=== PATIENT | female | born 1960 | race Caucasian/White ===

== ENCOUNTER 2018-09-30 17:36 | Emergency (ER) | payer OTHER ==
--- NOTE | 2018-09-30 17:39 | PDOC ---
"History of Present Illness - History of Present Illness Initial Comments: Of note, history is somewhat limited, patient seemingly not the most reliable source. This patient is a 58 year old female with PMHx of COPD, hyperthyroidism , and discoid lupus, who presents ambulatory to ER with complaints of thigh, neck, and generalized body pain which began 1 hr ago, denies inciting event. Patient also endorses nausea, RUQ pain, and 1 episode of vomit. Patient states that this began a week ago after being given red meat at a homeless detention when she is not used to eating red meat. Patient states that she has been noncompliant with her medication for the past year. Patient states that she is originally from [facility] and came to [facility] because of her boyfriend. She states he dropped her off and the train station from [place] and she somehow ended up here. She states that she is staying at a [facility] in [facility]. Denies any diarrhea. Denies any recent trauma, fall or heavy lifting. Social Hx: cigarette use. Denies EtOH and drug use. Last drink over a year ago. Surgical Hx: Appendectomy, tubal ligation Allergies: codeine (anaphylactic), penicillin (anaphylactic). 09/30/18 18:30 <Maryse Chavarria - Last Filed: 09/30/18 18:30> - General History Source: Patient Exam Limitations: No Limitations <Karyn Jacques - Last Filed: 10/03/18 11:47> - General Chief Complaint: Nausea/Vomiting Stated Complaint: NAUSEA Time Seen by Provider: 09/30/18 17:39 Past History <Maryse Chavarria - Last Filed: 09/30/18 18:30> <Karyn Jacques - Last Filed: 10/03/18 11:47> - Past Medical History Allergies/Adverse Reactions: Allergies Allergy/AdvReac Type Severity Reaction Status Date / Time No Known Allergies Allergy Verified 09/30/18 17:42 Home Medications: Ambulatory Orders NK [No Known Home Medication] 09/30/18 Review of Systems - Review of Systems Comments:: GENERAL/CONSTITUTIONAL: +generalized pain No: fever, chills, weakness, loss of appetite. HEAD, EYES, EARS, NOSE AND THROAT: No: change in vision, ear pain, discharge, sore throat, throat swelling. CARDIOVASCULAR: No: chest pain, lightheadedness, palpitations, syncope RESPIRATORY: No: cough, shortness of breath, wheezing, hemoptysis, stridor. GASTROINTESTINAL: +nausea, vomit x1, RUQ pain. No: diarrhea, rectal bleeding, constipation. GENITOURINARY: No: dysuria, hematuria, frequency, urgency, flank pain. MUSCULOSKELETAL: +neck pain. No: back pain, joint pain, muscle swelling or pain SKIN: No: lesions, pallor, rash or easy bruising. NEUROLOGIC: No: headache, vertigo, paresthesias, weakness ENDOCRINE: No: unexplained weight gain or loss HEMATOLOGIC/LYMPHATIC: No: anemia, easy bleeding, swelling nodes <Maryse Chavarria - Last Filed: 09/30/18 18:30> *Physical Exam - Vital Signs Last Vital Signs Temp Pulse Resp BP Pulse Ox 97.3 F L 75 20 120/73 98 09/30/18 17:37 09/30/18 17:37 09/30/18 17:37 09/30/18 17:37 09/30/18 17:37 - Physical Exam Comments: GENERAL: A&O x3. Disheveled. The patient is in no acute distress. HEAD: Normal with no signs of trauma. EYES: PERRLA, EOMI, sclera anicteric, conjunctiva clear. ENT: Ears normal, nares patent, oropharynx clear without exudates. Moist mucous membranes. NECK: No nuchal rigidity. Negative Kernig's & Brudzinski's signs. Normal range of motion, supple without lymphadenopathy, JVD, or masses. LUNGS: Breath sounds equal, clear to auscultation bilaterally. No wheezes, and no crackles. HEART:Regular rate and rhythm, normal S1 and S2 without murmur, rub or gallop. ABDOMEN: Soft, RUQ tenderness to palpation, no lower abdominal tenderness, normoactive bowel sounds. No guarding, no rebound. EXTREMITIES: Normal range of motion, no edema. No clubbing or cyanosis. No erythema, or tenderness. NEUROLOGICAL: Cranial nerves II through XII grossly intact. Normal speech. No focal neurological deficits. MUSCULOSKELETAL: Back nontender to palpation, no CVA tenderness SKIN: Warm, Dry, normal turgor, no rashes or lesions noted. <Maryse Chavarria - Last Filed: 09/30/18 18:30> Moderate Sedation - Procedure Monitoring Vital Signs: Procedure Monitoring Vital Signs Temperature 97.3 F L 09/30/18 17:37 Pulse Rate 75 09/30/18 17:37 Respiratory Rate 20 09/30/18 17:37 Blood Pressure 120/73 09/30/18 17:37 O2 Sat by Pulse Oximetry (%) 98 09/30/18 17:37 <Maryse Chavarria - Last Filed: 09/30/18 18:30> ED Treatment Course - LABORATORY CBC & Chemistry Diagram: 09/30/18 18:15 09/30/18 18:15 <Maryse Chavarria - Last Filed: 09/30/18 18:30> - LABORATORY CBC & Chemistry Diagram: 09/30/18 18:15 09/30/18 18:15 <Karyn Jacques - Last Filed: 10/03/18 11:47> Medical Decision Making - Medical Decision Making 09/30/18 17:47 Search Terms: Ling Wallace, 1960 Search Date: 09/30/2018 05:46:32 PM The Drug Utilization Report below displays all of the controlled substance prescriptions, if any, that your patient has filled in the last twelve months. The information displayed on this report is compiled from pharmacy submissions to the Department, and accurately reflects the information as submitted by the pharmacies. This report was requested by: Karyn Jacques | Reference #: [id number] There are no results for the search terms that you entered. 09/30/18 18:13 Pt presents to the ER with a very unclear story She reports that she has leg pain, neck pain, nausea No fevers or chills Pt reports that she live on [address] [place] [address] She does give a clear history as to how she got to [facility] She states that her symptoms began 1 hour ago, she was 1 block away from here She is originally from [place] non compliant with meds for the past year on examination: Awake and alert Discheveled, malodorous Breathing with pursed lips No nuchal rigidity, Kernig's and Brudzinski's negative RRR Faint breath sounds RUQ tenderness to palpation no lower extremity edema Will do Basic labs UA TSH CPK (eval for myositis, rhabdo) ESR/CRP will do CT abd to r/o intra abdominal pathology Tylenol for pain 09/30/18 18:49 CXR - flattened diaphragms, no infiltrate seen signed out to Dr. Fuentes <Karyn Jacques - Last Filed: 10/03/18 11:47> *DC/Admit/Observation/Transfer - Attestations Scribe Attestion: 09/30/18 18:36 Documentation prepared by Maryse Chavarria, acting as medical technologist hematology for Karyn Jacques MD. <Maryse Chavarria - Last Filed: 09/30/18 18:30> <Karyn Jacques - Last Filed: 10/03/18 11:47> Diagnosis at time of Disposition: Nausea - Discharge Dispostion Disposition: HOME Condition at time of disposition: Stable - Referrals Referrals: Sebastian Brown MD [Staff Physician] - - Patient Instructions Printed Discharge Instructions: DI for Nausea -- Adult"
[2018-09-30 17:59] VITALS: BP 120/73; PULSE 75; TEMP 97.3; BMI 21.6
[2018-09-30] MEDS ORDERED: ACETAMINOPHEN 325 MG TABLET (FP) PO ONE (18:20)
[2018-09-30] MEDS ORDERED: ALBUTEROL SO4 2.5/IPRATROPIUM 0.5 INH SOL 3 ML VIAL.NEB. NEB ONE ×2 (18:20→18:38)
[2018-09-30 18:36] LABS: BASO % 0.6 % (0-2.0); HEMATOCRIT 41.7 % (32.4-45.2); HEMOGLOBIN 13.5 GM/dl (10.7-15.3); LYMPH % 11.8 % (8-40); MCH 29.9 pg (25.7-33.7); MCHC 32.4 g/dl (32.0-36.0); MEAN CELL VOLUME 92.2 fl (80-96); MEAN PLT VOLUME 8.3 fl (7.5-11.1); MONO % 3.6 % (3.8-10.2); PLATELET COUNT 405 K/MM3 (134-434); RBC 4.52 M/mm3 (3.60-5.2); RDW 13.1 % (11.6-15.6); WHITE BLOOD COUNT 14.4 K/mm3 (4.0-10.8)
[2018-09-30] MEDS ORDERED: ACETAMINOPHEN 325 MG TABLET (FP) ONE (18:38)
[2018-09-30 18:45] LABS: ALBUMIN 4.8 g/dl (3.4-5.0); ALK PHOS 110 U/L (45-117); AMYLASE 73 U/L (25-115); ANION GAP 14 MMOL/L (8-16); BILIRUBIN,TOTAL 0.6 mg/dl (0.2-1); BLOOD UREA NITROGEN 27 mg/dl (7-18); CALCIUM 9.6 mg/dl (8.5-10); CHLORIDE 99 mmol/L (98-107); CO2 22 mmol/L (21-32); CREATININE 0.9 mg/dl (0.55-1.3); GLUCOSE,RANDOM 86 mg/dl (74-106); POTASSIUM 4.1 mmol/L (3.5-5.1); SGOT/AST 31 U/L (15-37); SGPT/ALT 17 U/L (13-61); SODIUM 135 mmol/L (136-145); TOT PROT 8.3 g/dl (6.4-8.2)
[2018-09-30] MEDS ORDERED: SODIUM CHLORIDE 1,000 ML IV STA (19:00)
--- NOTE | 2018-09-30 19:13 | PDOC ---
*Physical Exam - Vital Signs Last Vital Signs Temp Pulse Resp BP Pulse Ox 97.3 F L 75 20 120/73 98 09/30/18 17:37 09/30/18 17:37 09/30/18 17:37 09/30/18 17:37 09/30/18 17:37 ED Treatment Course - LABORATORY CBC & Chemistry Diagram: 09/30/18 18:15 09/30/18 18:15 - ADDITIONAL ORDERS Additional order review: Laboratory Results 09/30/18 18:15 Sodium 135 L Potassium 4.1 Chloride 99 Carbon Dioxide 22 Anion Gap 14 BUN 27 H Creatinine 0.9 Creat Clearance w eGFR > 60 Random Glucose 86 Calcium 9.6 Total Bilirubin 0.6 AST 31 ALT 17 Alkaline Phosphatase 110 Creatine Kinase 461 H Creatine Kinase Index 3.5 CK-MB (CK-2) 16.2 H Total Protein 8.3 H Albumin 4.8 Total Amylase 73 09/30/18 18:15 RBC 4.52 MCV 92.2 MCHC 32.4 RDW 13.1 MPV 8.3 Neutrophils % 84.0 H Lymphocytes % 11.8 Monocytes % 3.6 L Eosinophils % 0.0 Basophils % 0.6 - Medications Given in the ED: ED Medications Discontinued Medications Generic Name Dose Route Start Last Admin Trade Name Freq PRN Reason Stop Dose Admin Acetaminophen 975 mg 09/30/18 18:20 09/30/18 18:41 Tylenol - PO 09/30/18 18:21 975 mg ONCE ONE Administration Albuterol/Ipratropium 1 amp 09/30/18 18:20 09/30/18 18:41 Duoneb - NEB 09/30/18 18:21 1 amp ONCE ONE Administration Medical Decision Making - Medical Decision Making 09/30/18 21:37 Pt endorsed to me by Dr. Jacques at shift change. Presented with multiple somatic complaints, but no significant findings on physical exam with exception of RUQ tenderness. Labs without any significant abnormality. CT reviewed, no acute findings. Pt eating a sandwich at present. Stable for DC home. She states she has a way to get back to her care home. *DC/Admit/Observation/Transfer Diagnosis at time of Disposition: Nausea - Discharge Dispostion Disposition: HOME Condition at time of disposition: Stable Decision to Admit order: No - Referrals Referrals: Sebastian Brown MD [Staff Physician] - - Patient Instructions Printed Discharge Instructions: DI for Nausea -- Adult - Post Discharge Activity
[2018-09-30 19:15] LABS: ERYTHROCYTE SEDIMENTATION RATE 17 mm/hr (0-30)
[2018-09-30 19:53] LABS: LIPASE 154 U/L (73-393)
[2018-09-30 20:53] LABS: PH,URINE 5.5 (4.5-8); URINE APPEARANCE Clear; URINE BILIRUBIN Negative (NEGATIVE); URINE COLOR Yellow; URINE GLUCOSE (UA) Negative (NEGATIVE); URINE KETONE 2+ (NEGATIVE); URINE LEUK ESTERASE Negative (NEGATIVE); URINE NITRITE Negative (NEGATIVE); URINE PROTEIN Negative (NEGATIVE); URINE UROBILINOGEN 0.2 (0.2-1.0)
== END 2018-09-30 21:47 | disposition home or self-care (01) ==
LOC: FER 17:36
PROC: 3E0F7GC Introduction of Other Therapeutic Substance into Respiratory Tract, Via Natural or Artificial Opening (ICD-10-PCS; principal; 2018-09-30)
PROC: 3E0337Z Introduction of Electrolytic and Water Balance Substance into Peripheral Vein, Percutaneous Approach (ICD-10-PCS; 2018-09-30)
DX: R11.0 Nausea (principal)
CPT/HCPCS: 36415; 71046-TC-FY; 74177-TC; 80053; 81003; 82150; 82550; 82553; 83690; 84443; 84484; 85025; 85651; 86140; 87086; 99283-25; J7030